=== PATIENT | female | born 1980 | race Caucasian/White ===

== ENCOUNTER 2020-02-18 09:17 | Emergency (ER) | payer MEDICAID, OTHER ==
[2020-02-18] MEDS ORDERED: Promethazine 25 MG Tab PO ONE (10:11)
[2020-02-18] MEDS ORDERED: Butorphanol 2 MG/ML SDV IVPUSH ONE (10:11)
[2020-02-18] MEDS ORDERED: Sodium Chloride 0.9% 1,000 ML IV ONE (10:11)
--- NOTE | 2020-02-18 11:43 | EDM.PDOC ---
Scribed by Leslye Domínguez 02/18/20 1142 for Shaheed Jeter NP ED HPI GENERAL MEDICAL PROBLEM - General Chief Complaint: ENT Problem Stated Complaint: ABDOMINAL PAIN Time Seen by Provider: 02/18/20 10:10 Source of Information: Reports: Patient, RN, RN Notes Reviewed History Limitations: Reports: No Limitations - History of Present Illness INITIAL COMMENTS - FREE TEXT/NARRATIVE: Patient presents to ER with complaint of headache on the left side of her face on and off for 2 weeks. She states symptoms began with sinus pressure, sore throat, post nasal drainage, and a nonproductive cough. She reports a history of seasonal allergy for which she takes Benadryl. Sinus symptoms have been relieved with Benadryl, Tylenol PM. She has tried Tamiflu and Sudafed prior to ER visit. Patient with her headache is a 7/10 and described it as sharp and throbbing. She reports a history of migraine but she states this pain is different from her migraine headache. She does not drink water and has not been able to sleep because of the headache. She has not tried any of her migraine medication. She denies any head injury, trauma or fall. Onset: Gradual Duration: Getting Worse Location: Reports: Head Quality: Reports: Ache Severity: Moderate Improves with: Reports: None Worsens with: Reports: None Associated Symptoms: Reports: No Other Symptoms - Related Data Allergies Allergy/AdvReac Type Severity Reaction Status Date / Time No Known Allergies Allergy Verified 09/12/19 13:47 Home Meds: Home Meds Lisdexamfetamine Dimesylate [Vyvanse] 75 mg PO DAILY 07/29/18 [History] busPIRone HCl [Buspirone HCl] 30 mg PO BID PRN 08/13/19 [History] Naproxen [Naprosyn] 500 mg PO Q12HR PRN 09/12/19 [History] methocarbamoL [Robaxin] 500 mg PO ASDIRECTED PRN 09/12/19 [History] SUMAtriptan [Imitrex] 25 mg PO BID PRN 02/18/20 [History] Past Medical History Cardiovascular History: Reports: None Respiratory History: Reports: None Gastrointestinal History: Reports: Cholelithiasis Other RELATIONSHIP COUNSELOR History: hysterectomy Musculoskeletal History: Reports: Back Pain, Chronic Neurological History: Reports: Migraines Psychiatric History: Reports: ADHD, Anxiety, Depression - Past Surgical History GI Surgical History: Reports: Cholecystectomy Female Surgical History: Reports: Hysterectomy Neurological Surgical History: Reports: Lumbar Spine, Spinal Fusion Musculoskeletal Surgical History: Reports: Other (See Below) Other Musculoskeletal Surgeries/Procedures:: BACK FUSION Social & Family History - Family History Family Medical History: Noncontributory - Caffeine Use Caffeine Use: Reports: Coffee, Soda ED ROS GENERAL - Review of Systems Review Of Systems: Comprehensive ROS is negative, except as noted in HPI. - Physical Exam Exam: See Below Exam Limited By: No Limitations General Appearance: Alert, WD/WN, Moderate Distress Eye Exam: Bilateral Eye: EOMI, Normal Inspection, PERRL Ears: Normal External Exam, Normal Canal, Hearing Grossly Normal, Normal TMs Nose: Normal Inspection, Normal Mucosa, No Blood Throat/Mouth: Normal Inspection, Normal Lips, Normal Teeth, Normal Gums, Normal Oropharynx, Normal Voice, No Airway Compromise Head Exam: Atraumatic, Normocephalic, Facial Tenderness (on the left side of the forehead.) Neck: Normal Inspection, Supple, Non-Tender, Full Range of Motion Respiratory/Chest: No Respiratory Distress, Lungs Clear, Normal Breath Sounds, No Accessory Muscle Use, Chest Non-Tender Cardiovascular: Normal Peripheral Pulses, Regular Rate, Rhythm, No Edema, No Gallop, No JVD, No Murmur, No Rub Neuro Exam (Abbreviated): Alert, Oriented, CN II-XII Intact, Normal Cognition, Normal Gait, No Motor/Sensory Deficits Psychiatric: Normal Affect, Normal Mood Skin Exam: Warm, Dry, Intact, Normal Color, No Rash Course - Vital Signs Last Recorded V/S: Last Vital Signs Temp 98.0 F 02/18/20 09:50 Pulse 99 02/18/20 09:50 Resp 16 02/18/20 09:50 BP 160/99 H 02/18/20 09:50 Pulse Ox 100 02/18/20 09:50 - Orders/Labs/Meds Meds: Medications Discontinued Medications Generic Name Dose Route Start Last Admin Trade Name Freq PRN Reason Stop Dose Admin Butorphanol Tartrate 2 mg 02/18/20 10:11 02/18/20 10:27 Stadol IVPUSH 02/18/20 10:12 2 mg ONETIME ONE Administration Sodium Chloride 1,000 mls @ 1,000 mls/hr 02/18/20 10:11 02/18/20 10:27 Normal Saline IV 02/18/20 11:10 1,000 mls/hr .BOLUS ONE Administration Promethazine HCl 25 mg 02/18/20 10:11 02/18/20 10:27 Phenergan PO 02/18/20 10:12 25 mg ONETIME ONE Administration - Re-Assessments/Exams Free Text/Narrative Re-Assessment/Exam: Reviewed physical findings with patient. She was given IV fluids, Phenergan and Stadol with significant relief of pain. BP down in the 130's from 160. Patient encouraged to push fluids and rest. Follow up with PCP in the clinic. 02/18/20 11:42 Departure - Departure Time of Disposition: 11:41 Disposition: Home, Self-Care 01 Condition: Good Clinical Impression: Tension headache - Discharge Information Instructions: Tension Headache, Adult, [id number] Forms: ED Department Discharge Additional Instructions: Patient encouraged to push fluids and rest. Follow up with PCP in the clinic. Sepsis Event Note - Evaluation Sepsis Screening Result: No Definite Risk - Focused Exam Vital Signs: Vital Signs Temp Pulse Resp BP Pulse Ox 02/18/20 09:50 98.0 F 99 16 160/99 H 100 Date Exam was Performed: 02/18/20 Time Exam was Performed: 11:42 I have read and agree with the documentation that has been completed regarding this visit. By signing this record, I attest that the documentation was completed in my physical presence and is an accurate record of the encounter.
== END 2020-02-18 11:50 | disposition home or self-care (01) ==
LOC: DL.ED 09:17
DX: G44.209 Tension-type headache, unspecified, not intractable (principal)
CPT/HCPCS: 96361; 96374; 99283; A9270; J0595; J7030